=== PATIENT | female | born 1980 | race Caucasian/White ===

== ENCOUNTER 2017-07-19 14:18 | Emergency (ER) | payer OTHER ==
[~2017-07-19] VITALS: Ht 162.6 cm; Wt 72.5 kg
[2017-07-19 14:40] VITALS: TEMP 37.8; Ht 162.6 cm; Wt 72.5 kg
[2017-07-19] MEDS ORDERED: KETOROLAC TROMETHAMINE 30 MG/ML VIAL IV STA (15:06)
[2017-07-19] MEDS ORDERED: SODIUM CHLORIDE 0.9% 1000ML 1,000 ML IV STA (15:06)
[2017-07-19] MEDS ORDERED: ACETAMINOPHEN 325 MG TAB PO STA (15:12)
[2017-07-19 15:28] LABS: BASO % 0.3 %; BASO ABS # 0.02 K/uL (0-0.2); COMPLETE YES; EOS % 1.3 %; HEMATOCRIT 45.5 % (37-47); IG% 0.2 %; LYMPH % 9.6 %; LYMPH ABS # 0.58 K/uL (1.2-3.4); MEAN CELL VOLUME 87.5 fL (80-100); MEAN CORPUSCULAR HEMOGLOBIN 30.4 pg (25-34); MEAN CORPUSCULAR HGB CONC 34.7 g/dl (32-36); MONO % 6.3 %; NEUT % 82.3 %; PLATELET COUNT 180 K/uL (130-400); WHITE BLOOD COUNT 6.07 K/uL (4.8-10.8)
[2017-07-19 15:31] LABS: URINE APPEARANCE CLEAR (CLEAR); URINE BILIRUBIN NEG (NEG); URINE COLOR YELLOW; URINE NITRITE NEG (NEG); URINE SPECIFIC GRAVITY 1.026 (1.000-1.030); UROBILINOGEN NEG (NEG); ZZUR CULT IF INDIC CLEAN CATCH NO
[2017-07-19 15:39] LABS: MANUAL MICROSCOPIC REQUIRED? NO; REVIEW REQ? NO
--- NOTE | 2017-07-19 15:39 | EMERGENCY ROOM VISIT NOTE ---
History First contact with patient: 14:58 Chief Complaint: ILLNESS Stated Complaint: WEAKNESS, HEAD HURTS,BACK HURTS History of Present Illness The patient is a 36 year old female who presents to the Emergency Room with complaints of "weakness, head hurts, back hurts". The patient states that last night she noticed that she had bodyaches followed by her back starting to hurt and her head starting to hurt. She rates the head pain is an 8/10. She states that she has had fevers. The male accompanying her has had similar symptoms over the past few days but is beginning to feel better. He denies any chest pain, shortness of breath or abdominal pain. There are no urinary symptoms. She denies chance of . Review of Systems A complete 10-point Review of Systems was discussed with the patient, with pertinent positives and negatives listed in the History of Present Illness. All remaining Review of Systems questions can be considered negative unless otherwise specified. Past Medical/Surgical History Medical Problems: (1) Thyroid nodule Family History No pertinent. Social History Smoking Status: Never Smoker Alcohol Use: none Marital Status: single Occupation Status: employed Current/Historical Medications Scheduled Levothyroxine Sodium (Levothyroxine Sodium), 1 TAB PO DAILY Physical Exam Vital Signs Date Time Temp Pulse Resp B/P (MAP) Pulse Ox O2 Delivery O2 Flow Rate FiO2 07/19/17 16:47 104 18 116/75 96 07/19/17 14:40 37.8 111 20 115/90 94 Room Air Physical Exam VITAL SIGNS - Vital signs and nursing notes were reviewed. Stable. Tachycardic. Febrile. GENERAL -36-year-old female appearing her stated age who is in no acute distress. Communicates well with provider and answers questions appropriately. SKIN - Without rashes. No petechial or meningeal rash. HEAD - NC/AT. EYES - PERRL with EOMI bilaterally. Sclera anicteric. EARS - No deformities of external structures noted on gross examination bilaterally. Tympanic membranes pearly ferreira without retraction or bulging. No fluid or purulent material visualized behind the TM. Handle of malleus, umbo, cone of light, pars tensa/flaccid all easily visualized. NOSE - Midline and without cyanosis. No epistaxis or purulent drainage noted. MOUTH/OROPHARYNX - Without perioral cyanosis. Buccal mucosa pink and moist and without leukoplakia. Tongue midline with equal elevation of palate bilaterally. No tonsillar hypertrophy, erythema, or exudates noted. Fair dentition noted. NECK - Neck with FROM. No meningismus or nuchal rigidity. LUNGS - Chest wall symmetric without accessory muscle use, intercostals retractions, or central cyanosis. Normal vesicular breath sounds CTA B/L. No wheezes, rales, or rhonchi appreciated. CARDIAC - RRR with S1/S2. No murmur, rubs, or gallops appreciated. ABDOMEN - Abdominal contour normal without pulsations or visible masses. BS normoactive all four quadrants. No tenderness, palpable masses, hepatosplenomegaly, or ascites noted. EXTREMITIES - No clubbing or peripheral cyanosis. No pretibial edema present.+5/ 5 strength noted in UE/LE bilaterally. NEUROLOGIC - Cranial nerves II through XII grossly intact. Sensory intact to light touch throughout. PSYCH - A&O, and cooperates fully with examiner. Pt is very pleasant and interacts well with examiner. Medical Decision & Procedures ER Provider Diagnostic Interpretation: CHEST ONE VIEW PORTABLE CLINICAL HISTORY: Fever and weakness COMPARISON STUDY: 12/30/2008 FINDINGS: The cardiac and mediastinal contours are normal. There is no evidence of focal pulmonary consolidation. There is no evidence of failure. No pleural effusions are visualized.[ IMPRESSION: No active disease in the chest. Electronically signed by: Daniel Alexander M.D. 07/19/2017 3:37 PM Dictated Date/Time: 07/19/2017 3:36 PM Laboratory Results 07/19/17 15:18 Red Blood Count 5.20, Mean Corpuscular Volume 87.5, Mean Corpuscular Hemoglobin 30.4, Mean Corpuscular Hemoglobin Concent 34.7, Mean Platelet Volume 10.0, Neutrophils (%) (Auto) 82.3, Lymphocytes (%) (Auto) 9.6, Monocytes (%) (Auto) 6.3, Eosinophils (%) (Auto) 1.3, Basophils (%) (Auto) 0.3, Neutrophils # (Auto) 5.00, Lymphocytes # (Auto) 0.58, Monocytes # (Auto) 0.38, Eosinophils # (Auto) 0.08, Basophils # (Auto) 0.02 07/19/17 15:18 Test 07/19/17 15:09 07/19/17 15:10 07/19/17 15:18 Influenza Type A Antigen Neg for Influ A (NEG) Influenza Type B Antigen Neg for Influ B (NEG) Urine Color YELLOW Urine Appearance CLEAR (CLEAR) Urine pH 6.0 (4.5-7.5) Urine Specific Exchange 1.026 (1.000-1.030) Urine Protein NEG (NEG) Urine Glucose (UA) NEG (NEG) Urine Ketones NEG (NEG) Urine Occult Blood NEG (NEG) Urine Nitrite NEG (NEG) Urine Bilirubin NEG (NEG) Urine Urobilinogen NEG (NEG) Urine Leukocyte Esterase NEG (NEG) Urine Test NEG (NEG) White Blood Count 6.07 K/uL (4.8-10.8) Red Blood Count 5.20 M/uL (4.2-5.4) Hemoglobin 15.8 g/dL (12.0-16.0) Hematocrit 45.5 % (37-47) Mean Corpuscular Volume 87.5 fL (80-100) Mean Corpuscular Hemoglobin 30.4 pg (25-34) Mean Corpuscular Hemoglobin Concent 34.7 g/dl (32-36) Platelet Count 180 K/uL (130-400) Mean Platelet Volume 10.0 fL (7.4-10.4) Neutrophils (%) (Auto) 82.3 % Lymphocytes (%) (Auto) 9.6 % Monocytes (%) (Auto) 6.3 % Eosinophils (%) (Auto) 1.3 % Basophils (%) (Auto) 0.3 % Neutrophils # (Auto) 5.00 K/uL (1.4-6.5) Lymphocytes # (Auto) 0.58 K/uL (1.2-3.4) Monocytes # (Auto) 0.38 K/uL (0.11-0.59) Eosinophils # (Auto) 0.08 K/uL (0-0.5) Basophils # (Auto) 0.02 K/uL (0-0.2) RDW Standard Deviation 39.6 fL (36.4-46.3) RDW Coefficient of Variation 12.3 % (11.5-14.5) Immature Granulocyte % (Auto) 0.2 % Immature Granulocyte # (Auto) 0.01 K/uL (0.00-0.02) Anion Gap 6.0 mmol/L (3-11) Est Creatinine Clear Calc Drug Dose 83.2 ml/min Estimated GFR () 92.9 Estimated GFR (Non- 80.2 BUN/Creatinine Ratio 12.5 (10-20) Calcium Level 8.4 mg/dl (8.5-10.1) Total Bilirubin 0.2 mg/dl (0.2-1) Aspartate Amino Transf (AST/SGOT) 14 U/L (15-37) Alanine Aminotransferase (ALT/SGPT) 20 U/L (12-78) Alkaline Phosphatase 75 U/L (45-117) Total Protein 7.9 gm/dl (6.4-8.2) Albumin 3.8 gm/dl (3.4-5.0) Globulin 4.1 gm/dl (2.5-4.0) Albumin/Globulin Ratio 0.9 (0.9-2) Medications Administered Medications (Trade) Dose Ordered Sig/Oscar Route Start Time Stop Time Status Last Admin Dose Admin Sodium Chloride 1,000 ml @ 999 mls/hr Q1H1M STAT IV 07/19/17 15:06 07/19/17 16:06 DC 07/19/17 15:06 999 MLS/HR Acetaminophen (Tylenol Tab) 650 mg NOW STAT PO 07/19/17 15:12 07/19/17 15:14 DC 07/19/17 15:26 650 MG Medical Decision Patient was seen and evaluated as above. She presents to us today accompanied by male with weakness, head pain and low back pain. I suspect she is likely experiencing viral illness. IV access was initiated, and the above workup was performed. She was hydrated with 1 L of normal saline. Toradol was initially ordered however canceled she has a reaction to naproxen and I do not want to risk the interaction. She was given Tylenol instead. She was reevaluated and feeling slightly better. There is no concern leukocytosis or anemia noted. No concerning metabolic process. Urine is negative. Urine negative. Negative for flu. I do suspect she likely is experiencing a systemic viral illness but do not suspect sepsis or meningitis. She declined lumbar puncture. I do not believe that one is warranted. She appears stable for outpatient management. She was educated upon management, educated upon worrisome symptoms which to return, had questions about discharge, and was discharged home in good condition. She is to follow-up with her family doctor for recheck. In evaluation treatment this patient following differential diagnoses were entertained: Meningitis, encephalitis, viral URI, pneumonia, among others. Impression Primary Impression: Fever Additional Impression: Systemic viral illness Departure Information Dispostion Home / Self-Care Condition GOOD Referrals Jacques Chowdhury M.D.([facility]) (PCP) Patient Instructions My [facility] Additional Instructions You have been treated in the Emergency Department for fever. For pain control, you can use the following xbor-yas-shqeyay medicines (if >12 yo): - Regular strength (325mg/tab) Tylenol (acetaminophen) 2 tabs every 4-6 hours as needed. Do not exceed 12 tablets in a 24 hour period. Avoid taking more than 3 grams (3000 mg) of Tylenol per day. This includes any other sources of acetaminophen you may take on a regular basis. - Regular strength (200 mg/tab) Advil (ibuprofen) 1-2 tabs every 4-6 hours as needed. Do not exceed a dose of 3200 mg per day. You should schedule a follow-up appointment in 2-3 days with your Primary Care Provider for further evaluation and treatment of your symptoms.. Return to the Emergency Department if your current symptoms worsen despite treatment course outlined above, or if you develop any of the following symptoms : intractable pain despite aforementioned treatment course, loss of control of your bowel or bladder, numbness or tingling in your groin, or development of a fever. Problem Qualifiers
[2017-07-19] MEDS ORDERED: LEVO112T4 PO (15:43)
[2017-07-19 16:20] LABS: BUN/CREATININE RATIO 12.5 (10-20); CALCIUM 8.4 mg/dl (8.5-10.1); CREATININE 0.93 mg/dl (0.60-1.20); POTASSIUM 3.7 mmol/L (3.5-5.1)
[2017-07-19 16:23] LABS: ALB/GLOB RATIO 0.9 (0.9-2)
[2017-07-19 16:47] VITALS: BP 116/75; PULSE 104; O2SAT 96
== END 2017-07-19 16:48 | disposition home or self-care (01) ==
LOC: C.EDB 14:18 → C.EDC 16:48
DX: R50.9 Fever, unspecified (principal); B34.9 Viral infection, unspecified; E04.1 Nontoxic single thyroid nodule; R00.0 Tachycardia, unspecified

== ENCOUNTER 2024-02-06 17:24 | Inpatient (IN) ==
--- OUTSIDE RECORDS SUMMARY | 2024-02-06 17:35 | External Medical Summary | Summary of Care ---
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 agrees with the above plan. Information about current medications was provided to the patient including reasons why medications are being used. Patient understood the risks, benefits, side-effects, and potential complications associated with changes in medications being proposed (both medications being started and medications being discontinued or having dose changed). Patient is making an informed medical decision to follow the recommendations outlined in this note. Directed pt to call with any questions or concerns, worsening symptoms and/or ask for earlier appointment. Greater than 50% of the time was spent counseling or coordinating the care of the patient Risk assessment was performed. This is a patient being treated for chronic mental health conditionsand/or substance use disorder as characterized above; at the time of this visit, there was no indication that this patient was either a risk to self, others, or gravely disabled by symptoms of a mental illness or substance use disorder. At the time of this evaluation, there were enough protective factors in place and it was deemed safe to continue with treatment on an outpatient basis with returnto clinic in the timeframe described above. Airam Freitas participated in developing a crisis plan should he/she experience worsening of symptoms before next follow-up appointment, including being aware of what resources to use according to the urgency and severity of symptoms. Airam Freitas was able to verbalize understanding of the steps necessary to obtain help between appointments should be needed, from requesting a phone call, to requesting an appointment sooner, including reaching clinic after hours, or accessing emergency mental health and medical services, eitherat a local emergency department or by activating mobile crisis teams and EMS. TREATMENT PLAN: Time Spent on Visit: 1 hours Billing code: [id number] BRENT Mccurdy [facility] [phone] 01/01/2024 10:53 AM documented in this encounter Plan of Treatment Upcoming Encounters Date Type Department Care Team (Late st Contact Info) Description 01/19/2024 10:00 AM EDT Office Visit Family Practice [facility] [address] [facility] [place] [address] Tiarra Ricks DO 132 [facility] [place] [address] 02/12/2024 9:00 AM EDT Telemedicine Psychiatry Erica Huang, [place] [address] [place] [phone] Ade Smith CRNP [address] [place] [address] 06/28/2024 4:00 PM EST Imaging Radiology [facility] [address] [facility] [place] [address] Health Maintenance Due Date Last Done Comments HIV Screening 1997 Hepatitis C Screening 2000 Hepatitis B (1 of 3 - 19+ 3-dose series) 2001 HPV/Co-Test 2012 DTaP,Tdap,and Td Vaccines (2 - Td or Tdap) 06/01/2020 06/01/2010 COVID-19 Vaccine ( season) 2023 Cervical Cancer Screening 02/20/2024 Pap Smear 02/20/2024 02/19/2021, 040 01/2017, 10/31/2016, Additional history exists Influenza Vaccine (FLU shot) (Season Ended) 2024 05/18/2019, 05/18/2019, 04/02/2018, Additional history exists Mammogram 06/16/2024 06/16/2023, 02/24, 02/22/2021 Depression Screening 08/19/2024 08/19/2023 TSH 11/02/2024 11/03/2023, 090 08/2022, 02/13/2023, Additional history exists Diabetes Screening 11/02/2026 11/03/2023, 0 03/30/2023, 03/29/2023, Additional history exists Lipid Panel 03/29/2028 03/29/2023, 02/13/2023 GARDASIL-HPV IMMUNIZATION SERIES Aged Out No longer eligible based on patient's age to complete this topic MENINGOCOCCAL (MENACTRA/MENVEO) Aged Out No longer eligible based on patient's age to complete this topic Pneumococcal Vaccine: Pediatrics (0 to 5 Years) and At-Risk Patients (6 to 64 Years) Aged Out No longer eligible based on patient's age to complete this topic documented as of this encounter Medical Devices Not on filedocumented as of this encounter Visit Diagnoses Diagnosis Panic disorder without agoraphobia- Primary GERALDINE (generalized anxiety disorder) Generalized anxiety disorder documented in this encounter Advance Directives * Full Code (Latest Code Status on File) Date Activated Date Inactivated Comments 03/28/2023 6:16 PM 03/31/2023 1:01 AM This order ref lects the patients wishes and were consensually agreed upon. Question Answer Comments Discussion of Advance Directives occurred with: Patient * Full Code Date Activated Date Inactivated Comments 02/18/2016 4:50 PM 02/19/2016 1:25 PM This order r eflects the patients wishes and were consensually agreed upon. Question Answer Comments Discussion of Advance Directives occurred with: Not Discussed Care Teams Salesperson Floor Coverings Relationship Specialty Start Date End Date Tiarra Ricks DO [address] [place] [address] PCP - General Family Medicine 10/08/18 documented as of this encounter
--- OUTSIDE RECORDS SUMMARY | 2024-02-06 17:35 | External Medical Summary | Summary of Care ---
Author Name Unknown Organization [facility] Address [address] [place] [address] Phone [phone] Care Team Providers Care Battery Assembler Plastic Name Role Phone JadenTiarra sands Primary Care Provider [phone] Encounter Details Date Type Department Care Team (Late st Contact Info) Description 01/08/2024 Telephone Psychiatry, [place] [address] [place] [address] Ade mSith CRNP [address] [place] [address] Allergies Active Allergy Reactions Criticality Noted Date Comments Naproxen 02/08/2014 Chest tightness Nitrofurantoin Hives Low 02/07/2014 All over documented as of this encounter (statuses as of 01/08/2024) Medications Medication Sig Dispensed Refills Start Date End Date Status ibuprofen (MOTRIN) 200 MG Tablet Take 1 Tablet by mouth every 4 hours as needed for Pain. Active Levonorgestrel 20 MCG/24HR Intrauterine Intrauterine Device (Mirena) Insert 1 Each into uterus once. Active Hydrocortisone 2.5 % External CreamIndications:Hemo rrhoids, external without complications Administer into the rectum 2 times a day. 20 g 1 05/19/2023 Active Cyclobenzaprine HCl 5 MG Oral Tablet (Flexeril)Indications :Strain of neck muscle, initial encounter Take 1 Tablet by mouth 3 times a day as needed for Muscle spasms. 30 Tablet 1 07/08/2023 Active Ondansetron 4 MG Oral Tablet Disintegrating (Zofran)Indications:N ausea Place 1 Tablet on tongue every 8 hours as needed for Nausea. dissolve on tongue. 30 Tablet 07/30/2023 Active Ventolin HFA 108 (90 Base) MCG/ACT Inhalation Aerosol Solution Inhale 2 Puffs by mouth every 4 hours as needed for Other (COUGH). 18 g 1 08/12/2023 Active Synthroid 112 MCG Oral TabletIndications:Pap illary thyroid carcinoma (HCC) Take 1 Tablet by mouth in the morning. (at least 30 min prior to breakfast or other meds). 90 Tablet 3 11/09/2023 Active Omeprazole 40 MG Oral Capsule Delayed Release (PriLOSEC)Indications :GERD (gastroesophageal reflux disease) Take 1 Capsule by mouth in the morning. 1 hour before the first meal of the day. 90 Capsule 3 12/16/2023 Active Sertraline HCl 100 MG Oral Tablet (Zoloft) Take 1.5 Tablets by mouth in the morning. 45 Tablet 2 01/01/2024 Active busPIRone HCl 10 MG Oral Tablet (Buspar)Indications:G AD (generalized anxiety disorder) Take 2 Tablets by mouth in the morning and 2 Tablets before bedtime. 180 Tablet 3 01/01/2024 Active clonazePAM 0.5 MG Oral Tablet (KlonoPIN) Take 1 Tablet by mouth at bedtime as needed for Anxiety. 30 Tablet 2 01/01/2024 Active traZODone HCl 100 MG Oral Tablet (Desyrel) Take 1 Tablet by mouth at bedtime. 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 Convulsions 11/07/2023 Upper respiratory tract infection 08/12/2023 Anxiety attack 04/29/2023 Family history of breast cancer 02/19/2021 Overview: Mom at age 45; pt to start mammograms GERALDINE (generalized anxiety disorder) 05/11/2018 Hypocalcemia 04/09/2016 Low serum parathyroid hormone (PTH) 04/09/2016 Papillary thyroid carcinoma 02/18/2016 Overview: Dx at time of R thyroid lobectomy on 02/06/16 at [facility]; 2.0 cm max diameter with extension into surrounding thyroid tissue Post-surgical hypothyroidism 02/18/2016 Overview: Following completion thyroidectomy for Papillary Thyroid Carcinoma documented as of this encounter (statuses as of 01/08/2024) Resolved Problems Problem Noted Date Diagnosed Date Resolved Date Malaise and fatigue 04/07/2011 06/30/20 17 Vertigo 04/07/2011 06/30/2017 NO KNOWN PROBLEMS 11/08/2008 06/30/2017 documented as of this encounter (statuses as of 01/08/2024) Immunizations Name Administration Dates Next Due PPD [...] money to get more. Never true 01/01/2024 Sex and Gender Information Value Date [...] (15 years old or older) No 03/28/20 Cognitive Status Response Date of Assessm ent Because of a physical, menta l, or emotional condition, do you have serious difficulty concentrating, remembering, or making decisions? (5 years old or older) No 03/28/2023 documented as of this encounter Plan of Treatment Upcoming Encounters Date Type Department Care Team (Late st Contact Info) Description 01/13/2024 1:40 PM EDT Office Visit Family Practice [facility] 132 [facility] [place] [address] Tiarra Ricks, 132 [facility] [place] [address] 02/12/2024 9:00 AM EDT Telemedicine Psychiatry Melissa Villan[place] [address] [place] [phone] Ade Smith CRNP [address] [place] [address] 06/28/2024 4:00 PM EST Imaging Radiology [address] [facility] [place] [address] Health Maintenance Due Date Last Done Comments HIV Screening 1997 Hepatitis C Screening 2000 Hepatitis B (1 of 3 - 19+ 3-dose series) 2001 HPV/Co-Test 2012 DTaP,Tdap,and Td Vaccines (2 - Td or Tdap) 06/01/2020 06/01/2010 COVID-19 Vaccine ( season) 2023 Cervical Cancer Screening 02/20/2024 Pap Smear 02/20/2024 02/19/2021, 04/0 01/2017, 10/31/2016, Additional history exists Influenza Vaccine (FLU shot) (Season Ended) 2024 05/18/2019, 05/18/2019, 04/02/2018, Additional history exists Mammogram 06/16/2024 06/16/2023, 0809/2020, 02/22/2021 Depression Screening 08/19/2024 08/19/2023 TSH 11/02/2024 11/03/2023, 0908/2022, 02/13/2023, Additional history exists Diabetes Screening 11/02/2026 [...] as of this encounter Visit Diagnoses Diagnosis GERALDINE (generalized anxiety disorder)- Primary Generalized anxiety disorder documented in this encounter [...] Directives occurred with: Not Discussed Care Teams Battery Assembler Plastic Relationship Specialty Start Date End Date Tiarra Ricks DO [address] [place] [address] PCP - General Family Medicine 10/08/18 documented as of this encounter
--- OUTSIDE RECORDS SUMMARY | 2024-02-06 17:35 | External Medical Summary | Summary of Care ---
Author Name Unknown Organization [facility] Address [address] [facility] [place] [address] Phone [phone] Care Team Providers Care Blacksmith Assistant Name Role Phone Tiarra Ricks DO Primary Care Provider [phone] Reason for Visit * Reason Onset Date Comments Advice 12/26/2023 Encounter Details Date Type Department Care Team (Late st Contact Info) Description 12/26/2023 Telephone Family Practice [facility] [address] [place] [address] Tiarra Ricks DO [address] [place] [address] Advice Allergies Active Allergy Reactions Criticality Noted Date Comments Naproxen 02/08/2014 Chest tightness Nitrofurantoin Hives Low 02/07/2014 All over documented as of this encounter (statuses as of 12/28/2023) Medications Medication Sig Dispensed Refills Start Date End Date Status ibuprofen (MOTRIN) 200 MG Tablet Take 1 Tablet by mouth every 4 hours as needed for Pain. Active Levonorgestrel 20 MCG/24HR Intrauterine Intrauterine Device (Mirena) Insert 1 Each into uterus once. Active Sertraline HCl 100 MG Oral Tablet (Zoloft)Indications:G AD (generalized anxiety disorder) TAKE 1 TABLET BY MOUTH EVERY DAY 90 Tablet 3 03/12/2023 Active Hydrocortisone 2.5 % External CreamIndications:Hemo rrhoids, [...] Other (COUGH). 18 g 1 08/12/2023 Active busPIRone HCl 10 MG Oral Tablet (Buspar)Indications:G AD (generalized anxiety disorder) Take 2 Tablets by mouth in the morning and 2 Tablets before bedtime. 180 Tablet 3 11/03/2023 Active Synthroid 112 MCG Oral TabletIndications:Pap illary [...] the day. 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 Convulsions 11/07/2023 Upper respiratory tract infection 08/12/2023 Anxiety attack 04/29/2023 Family history of breast cancer 02/19/2021 Overview: Mom at age 47; pt to start mammograms GERALDINE (generalized anxiety disorder) 05/11/2018 Hypocalcemia 04/09/2016 Low serum parathyroid hormone (PTH) 04/09/2016 Papillary thyroid carcinoma 02/18/2016 Overview: Dx at time of R thyroid lobectomy on 02/06/16 at [facility]; 2.0 cm max diameter with extension into surrounding thyroid tissue Post-surgical hypothyroidism 02/18/2016 Overview: Following completion thyroidectomy for Papillary Thyroid Carcinoma documented as of this encounter (statuses as of 12/28/2023) Resolved Problems Problem Noted Date Diagnosed Date Resolved Date Malaise and fatigue 04/07/2011 06/30/20 17 Vertigo 04/07/2011 06/30/2017 NO KNOWN PROBLEMS 11/08/2008 06/30/2017 documented as of this encounter (statuses as of 12/28/2023) Immunizations Name Administration Dates Next Due PPD [...] the money to buy more. Never true 02/24/20 23 Within the past 12 months, t he food you bought just didn't last and you didn't have money to get more. Never true 02/23/2023 Sex and Gender Information Value Date Recorded [...] No 03/28/2023 documented as of this encounter Miscellaneous Notes * Telephone Encounter - Lashaun Ansari LPN - 12/28/2023 2:18 PM EDT Nothing sooner for Dr. Dawson Looks like appt was scheduled, and pt will need to keep that apptif she only wants to see Dr. Ricks. * Telephone Encounter - Charisma St OSA - 12/28/2023 8:43 AM EDT Patient calling in to schedule hospital discharge appointment- scheduled for 01/13/24 due to patientonly wanting to see PCP. No sooner appointments available. Hospital discharge- [facility] 12/26/23- Panic attacks/anxiety- requested PCP only (next available 01/13/24) * Telephone Encounter - Haylee Monroe OSA - 12/26/2023 12:56 PM EDT Pt stating they are having really bad anxiety attacks from the last 2 days, wondering if there is anything she can do as she is also having really bad diarrhea. Requesting someone give her a call. documented in this encounter Plan of Treatment Upcoming Encounters Date Type Department Care Team (Late st Contact Info) Description 01/01/2024 11:00 AM EDT Telemedicine Psychiatry Melissa Villanueva [address] [place] [phone] Ade Smith CRNP [address] [place] [phone] 01/13/2024 1:40 PM EDT Office Visit Family Practice [facility] [address] [facility] [place] [address] Tiarra Ricks, [address] [facility] [place] [address] 06/28/2024 4:00 PM EST Imaging Radiology [address] 132 [facility] [place] [address] Health Maintenance Due Date Last Done Comments HIV Screening 1997 Hepatitis C Screening 2000 Hepatitis B (1 of 3 - 19+ 3-dose series) 2001 HPV/Co-Test 2012 DTaP,Tdap,and Td Vaccines (2 - Td or Tdap) 06/01/2020 06/01/2010 COVID-19 Vaccine ( - season) 2023 Cervical Cancer Screening 02/20/2024 Pap Smear 02/20/2024 02/19/2021, 01/2017, 10/31/2016, Additional history exists Influenza Vaccine (FLU shot) (Season Ended) 2024 05/18/2019, 05/18/2019, 04/02/2018, Additional history exists Mammogram 06/16/2024 06/16/2023, 05/28, 03/08/2021, Additional history exists Depression Screening 08/19/2024 08/19/2023 TSH 11/02/2024 11/03/2023, 08/2022, 02/13/2023, Additional history exists Diabetes Screening [...] Not on filedocumented as of this encounter Advance Directives * Full Code [...] Directives occurred with: Not Discussed Care Teams Blacksmith Assistant Relationship Specialty Start Date End Date Tiarra Ricks DO [address] [place] [address] PCP - General Family Medicine 10/08/18 documented as of this encounter
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
[2024-02-06 17:50] LABS: Appearance Urine Cloudy (Clear); Bacteria Urine Automated None Seen (None Seen); Bilirubin Urine Negative (Negative); Blood Urine Negative (Negative); Color Urine Dark Yellow; Glucose Urine UA Negative (Negative); Ketones Urine Trace (Negative); Leukocyte Esterase Urine Trace (Negative); Nitrite Urine Negative (Negative); Protein Urine Trace (Negative); RBC Urine Automated 0-2 /hpf (0-2); Specific Gravity Urine 1.031 (1.000-1.030); Urobilinogen Urine Negative (Negative); WBC Urine Automated 0-5 /hpf (0-5); pH Urine 5.5 (4.5-7.5)
[2024-02-06 18:07] LABS: Amphetamines+Metham, Urine Neg (Neg); Barbiturates, Urine Neg (Neg); Benzodiazepine, Urine Pos (Neg); Cocaine, Urine Neg (Neg); Fentanyl, Urine Neg (Neg); MDMA (Ecstacy), Urine Neg (Neg); Marijuana, Urine Neg (Neg); Methadone, Urine Neg (Neg); Opiate, Urine Neg (Neg); Phencyclidine, Urine Neg (Neg)
[2024-02-06 18:09] LABS: Basophils # (auto) 0.03 K/uL (0.00-0.20); Basophils % (auto) 0.3 %; Eosinophils # (auto) 0.14 K/uL (0.00-0.50); Eosinophils % (auto) 1.2 %; Hematocrit (blood only) 47.2 % (37.0-47.0); Hemoglobin 15.8 g/dl (12.0-16.0); Immature Granulocytes # (auto) 0.02 K/uL (0.01-0.20); Immature Granulocytes % (auto) 0.2 %; Lymphocytes # (auto) 1.45 K/uL (1.20-3.40); Lymphocytes % (auto) 12.8 %; Mean Corpuscular Hemoglobin 28.2 pg (25.0-34.0); Mean Corpuscular Hgb Conc 33.5 g/dL (32.0-36.0); Mean Corpuscular Volume 84.1 fL (80.0-100.0); Monocytes # (auto) 0.95 K/uL (0.11-0.59); Monocytes % (auto) 8.4 %; Neutrophils # (auto) 8.78 K/uL (1.40-6.50); Neutrophils % (auto) 77.1 %; Platelet Count 229 K/uL (130-400); RDW Coefficient of Variation 12.8 % (11.5-14.5); RDW Standard Deviation 38.9 fL (36.4-46.3); Red Blood Count 5.61 M/uL (4.20-5.40); White Blood Count 11.37 K/ul (4.8-10.8)
[2024-02-06 18:26] LABS: Pregnancy Test, Serum Negative (Negative)
[2024-02-06 18:27] LABS: Albumin Globulin Ratio 1.4 (0.9-2); Albumin Level 4.4 gm/dl (3.4-5.0); BUN Creatinine Ratio 14.1 (10-20); Bilirubin,Total 0.6 mg/dl (0.2-1.0); Calcium 9.1 mg/dl (8.6-10.3); Creatinine Clr Calc Pharmacy 84.5 ml/min; Est GFR (African American) 89.6 ml/min; Est GFR (Non-African American) 77.3 ml/min; Globulin 3.2 gm/dl (2.5-4.0); Potassium 3.5 mmol/L (3.5-5.1); Total Protein 7.6 gm/dl (6.0-8.3)
[2024-02-06 18:32] LABS: Acetaminophen < 3 ug/ml (10-30); Salicylate < 3.0 mg/dl (3.0-30)
[2024-02-06 18:44] LABS: Thyroid Stimulating Hormone 1.822 uIu/ml (0.300-4.500)
[2024-02-06] MEDS ORDERED: ACETAMINOPHEN 325 MG TAB PO PRN (22:34)
[2024-02-06] MEDS ORDERED: hydrOXYzine HCl 25 MG TAB PO PRN ×2 (22:34)
[2024-02-06] MEDS ORDERED: ALUMINUM/MAGNESIUM SUSP 30 ML UDC PO PRN (22:34)
[2024-02-06] MEDS ORDERED: SODIUM CHLORIDE 0.65% NA SOLN 45 ML (OCEAN) PRN (22:34)
[2024-02-06] MEDS ORDERED: MAGNESIUM HYDROXIDE SUSP 30 ML UDC PO PRN (22:34)
[2024-02-06] MEDS ORDERED: clonazePAM 0.5 MG TAB PO PRN (22:54)
[2024-02-06] MEDS: traZODone HCL 100 MG TAB PO SCH (23:03)
[2024-02-06] MEDS: busPIRone 5 MG TAB PO SCH (23:05)
[2024-02-07] MEDS: LEVOTHYROXINE SODIUM 112 MCG TABLET PO SCH (08:52)
[2024-02-07] MEDS: PANTOprazole 40 MG TAB PO SCH (08:52)
[2024-02-07] MEDS: SERTRALINE HCL 50 MG TABLET PO SCH (08:52)
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
[2024-02-07] MEDS: ARIPiprazole 5 MG TAB PO SCH (21:37)
[2024-02-08] MEDS: LORazepam 0.5 MG TAB PO PRN (13:36)
--- NOTE | 2024-02-08 16:35 | Psychiatric Progress Note ---
Date of Service February 08, 2024 Impression / Recommendations Impression MARU FOWLER is a 43-year-old F who currently lives with daughters, has a history of depression, anxiety, panic attacks, hypothyroidism, and was admitted on 02/06/24 22:09 on a 201 voluntary commitment for suicidal ideation in the context of escalating social stressors. Patient's presentation concerning for major depressive disorder and generalized anxiety disorder with panic attacks. Patient presents excess worry occurring more days than not, difficulty controlling the worry, and associated with physical symptoms including sleep disturbance, difficulty concentrating, being easily fatigued, and being restles s. Patient at times has associated panic attacks. She presents a history of a major depressive episodes. A: Patient continues to be distressed about recent stressors and impacting sleep. Tolerating Abilify well. Encouraged to use PRNs for anxiety. Overall, I spent a total of 40 minutes with this case including review of chart records, nursing report, direct evaluation of the patient at bedside, counseling the patient, multidisciplinary team meeting, and documentation in the electronic health record. (1) Generalized anxiety disorder with panic attacks: (2) MDD (major depressive disorder), recurrent, in partial remission: (3) Other social stressor: (4) H/O thyroidectomy: Plan 02/08/2024: Continue medication and treatment plan. 02/07/2024: Continue home medications. Start aripiprazole 5 mg at bedtime. Start lorazepam 0.5 mg every 6 hours as needed for anxiety. Inventory Assets Strengths: family support, connected to care Needs: outpatient counseling, medication adjustment Suicide Risk Level Suicide Risk Level: Moderate (q15 min suicide checks) Risk Factors Assessment Male: No : Yes Do You Have Access To A Gun?: No Health Problems: Yes Mental Health Diagnoses: Yes Substance Use Disorders: No Previous Attempt: No Family History of Suicide: No Previous Psychiatric Hospitalization: No Hopelessness: No Protective Factors Assessment Holiness Beliefs: No : No Responsible for Young Children: Yes Employed: Yes ([employer]) Stable Relationships: Yes Supportive Family: Yes Good Rapport with Provider: Yes Absence of Any Risk Factors Above: No Interval History Identifying Information MARU FOWLER is a 43-year-old F who currently lives with daughters, has a history of depression, anxiety, panic attacks, hypothyroidism, and was admitted on 02/06/24 22:09 on a 201 voluntary commitment for suicidal ideation in the context of escalating social stressors. Chief Complaint "tired". Review of Systems Sleep Information Total Hours of Sleep: 7.5 Meal Information Percent Meal Consumed - Breakfast: 40 Percent Meal Consumed - Lunch: 75 Percent Meal Consumed - Dinner: 50 Subjective Subjective Patient was seen & assessed and interval progress reviewed with treatment team nursing and social work Patient reports feeling tired. Complains of sleep onset and maintenance disruption due to anxious ruminations. Feels that she is "in a fog". Has been tolerating Abilify with no side effects or complaints. She denies suicidal ideation. She appears bright when talking about her pets. Discusses the stressors she is currently going through. Encouraged to use anxiety PRNs. Physical Exam Mental Examination Appearance: Well Groomed Eye Contact: Maintains Eye Contact Motor Behavior: Unremarkable Speech: Normal Mood: Anxious and Sad Affect: Congruent and Constricted Thought Process: Intact and Linear Thought Content: Intact Hallucinations: None Insight: Fair Judgement: Fair Vital Signs (Past 24 Hours) Last Vital Signs Temp 36.5 C 02/08/24 06:28 Pulse 76 02/08/24 06:28 Resp 16 02/08/24 06:28 BP 104/68 02/08/24 06:28 Pulse Ox 96 02/06/24 23:22 O2 Del Method Room Air 02/06/24 23:22 Results & Data ([facility]) Current Inpatient Medications Current Inpatient Medications: Current Inpatient Medications Acetaminophen (Acetaminophen 325 Mg Tab) 650 mg PO Q4H PRN PRN Reason: Headache or Minor Fever Stop: 03/07/24 22:33 Al Hydrox/Mg Hydrox/Simethicone (Aluminum/Magnesium Susp 30 Ml Udc) 30 ml PO Q4H PRN PRN Reason: GI Upset Stop: 03/07/24 22:33 Aripiprazole (Aripiprazole 5 Mg Tab) 5 mg PO HS MARCI Stop: 03/08/24 21:59 Last Admin: 02/07/24 21:37 Dose: 5 mg Buspirone HCl (Buspirone 5 Mg Tab) 20 mg PO BID MARCI Stop: 03/07/24 22:59 Last Admin: 02/08/24 08:56 Dose: 20 mg Clonazepam (Clonazepam 0.5 Mg Tab) 0.5 mg PO HS PRN PRN Reason: Anxiety Stop: 03/07/24 22:53 Hydroxyzine HCl (Hydroxyzine Hcl 25 Mg Tab) 50 mg PO HSZ PRN PRN Reason: Insomnia Stop: 03/07/24 22:33 Hydroxyzine HCl (Hydroxyzine Hcl 25 Mg Tab) 25 mg PO Q4H PRN PRN Reason: Anxiety Stop: 03/07/24 22:33 Levothyroxine Sodium (Levothyroxine Sodium 112 Mcg Tablet) 112 mcg PO DAILYBB MARCI Stop: 03/08/24 07:59 Last Admin: 02/08/24 08:56 Dose: 112 mcg Lorazepam (Lorazepam 0.5 Mg Tab) 0.5 mg PO Q6H PRN PRN Reason: Anxiety Stop: 03/08/24 15:33 Last Admin: 02/08/24 13:36 Dose: 0.5 mg Magnesium Hydroxide (Magnesium Hydroxide Susp 30 Ml Udc) 30 ml PO DAILY PRN PRN Reason: Constipation Stop: 03/07/24 22:33 Pantoprazole Sodium (Pantoprazole 40 Mg Tab) 40 mg PO QAM MARCI Stop: 03/08/24 08:59 Last Admin: 02/08/24 08:56 Dose: 40 mg Sertraline HCl (Sertraline Hcl 50 Mg Tablet) 150 mg PO QAM MARCI Stop: 03/08/24 08:59 Last Admin: 02/08/24 08:56 Dose: 150 mg Sodium Chloride (Sodium Chloride 0.65% Na Soln 45 Ml (Saline)) 1 - 2 sprays NA PRN PRN PRN Reason: Nasal Dryness/Congestion Stop: 03/07/24 22:33 Trazodone HCl (Trazodone Hcl 100 Mg Tab) 200 mg PO HS MARCI Stop: 03/07/24 22:54 Last Admin: 02/07/24 21:39 Dose: 200 mg Mental Health & Subst Abuse Tx Therapist Name of Therapist: None - has been calling around for appointment Payroll And Benefits Assistant Name of Payroll And Benefits Assistant: None
--- NOTE | 2024-02-09 14:45 | Psychiatric Progress Note ---
Date of Service February 09, 2024 Impression / Recommendations Impression MARU FOWLER is a 43-year-old F who currently lives with daughters, has a history of depression, anxiety, panic attacks, hypothyroidism, and was admitted on 02/06/24 22:09 on a 201 voluntary commitment for suicidal ideation in the context of escalating social stressors. Patient's presentation concerning for major depressive disorder and generalized anxiety disorder with panic attacks. Patient presents excess worry occurring more days than not, difficulty controlling the worry, and associated with physical symptoms including sleep disturbance, difficulty concentrating, being easily fatigued, and being restles s. Patient at times has associated panic attacks. She presents a history of a major depressive episodes. A: Patient presents improved anxious ruminations. Continues to have some difficulties with sleep and was encouraged to use as needed Klonopin. Tolerating abilify well. Given the limited benefit from trazodone will decrease back to 100 mg dose. Overall, I spent a total of 30 minutes with this case including review of chart records, nursing report, direct evaluation of the patient at bedside, counseling the patient, multidisciplinary team meeting, and documentation in the electronic health record. (1) Generalized anxiety disorder with panic attacks: (2) MDD (major depressive disorder), recurrent, in partial remission: (3) Other social stressor: (4) H/O thyroidectomy: Plan 02/09/2024: Decrease trazodone to 100 mg at bedtime. 02/08/2024: Continue medication and treatment plan. 02/07/2024: Continue home medications. Start aripiprazole 5 mg at bedtime. Start lorazepam 0.5 mg every 6 hours as needed for anxiety. Inventory Assets Strengths: family support, connected to care Needs: outpatient counseling, medication adjustment Suicide Risk Level Suicide Risk Level: Moderate (q15 min suicide checks) Risk Factors Assessment Male: No : Yes Do You Have Access To A Gun?: No Health Problems: Yes Mental Health Diagnoses: Yes Substance Use Disorders: No Previous Attempt: No Family History of Suicide: No Previous Psychiatric Hospitalization: No Hopelessness: No Protective Factors Assessment Samaritan Beliefs: No : No Responsible for Young Children: Yes Employed: Yes ([employer]) Stable Relationships: Yes Supportive Family: Yes Good Rapport with Provider: Yes Absence of Any Risk Factors Above: No Interval History Identifying Information MARU FOWLER is a 43-year-old F who currently lives with daughters, has a history of depression, anxiety, panic attacks, hypothyroidism, and was admitted on 02/06/24 22:09 on a 201 voluntary commitment for suicidal ideation in the context of escalating social stressors. Chief Complaint "better". Review of Systems Sleep Information Total Hours of Sleep: 7.5 Meal Information Percent Meal Consumed - Breakfast: 50 Percent Meal Consumed - Lunch: 75 Percent Meal Consumed - Dinner: 50 Subjective Subjective Patient was seen & assessed and interval progress reviewed with treatment team nursing and social work The patient reports feeling "good". She reports feeling better. Feels more rested but continues to have difficulty staying asleep. Feels the increase in trazodone from outpatient practitioner did not make an impact. Still had difficulty sleeping and trazodone at 100 mg. Feels she has improved control over her anxious ruminations. Tolerating Abilify well. Reports niece is doing better and is currently in the [place]. Talks about her life and says that her daughter is in October tolerating Abilify well. Reports niece is doing better and is currently in the [facility]. Daughter is to be in October. She talks about her daughter's accomplishments and how she is proud. She denies suicidal ideation. Physical Exam Mental Examination Appearance: Well Groomed Eye Contact: Maintains Eye Contact Motor Behavior: Unremarkable Speech: Normal Mood: Anxious and Sad Affect: Congruent and Constricted Thought Process: Intact and Linear Thought Content: Intact Hallucinations: None Insight: Fair Judgement: Fair Vital Signs (Past 24 Hours) Last Vital Signs Temp 36.4 C L 02/09/24 06:00 Pulse 77 02/09/24 06:19 Resp 16 02/09/24 06:00 BP 104/71 02/09/24 06:19 Pulse Ox 96 02/09/24 06:00 O2 Del Method Room Air 02/09/24 06:00 Results & Data ([facility]) Current Inpatient Medications Current Inpatient Medications: Current Inpatient Medications Acetaminophen (Acetaminophen 325 Mg Tab) 650 mg PO Q4H PRN PRN Reason: Headache or Minor Fever Stop: 03/07/24 22:33 Al Hydrox/Mg Hydrox/Simethicone (Aluminum/Magnesium Susp 30 Ml Udc) 30 ml PO Q4H PRN PRN Reason: GI Upset Stop: 03/07/24 22:33 Aripiprazole (Aripiprazole 5 Mg Tab) 5 mg PO HS MARCI Stop: 03/08/24 21:59 Last Admin: 02/08/24 20:52 Dose: 5 mg Buspirone HCl (Buspirone 5 Mg Tab) 20 mg PO BID MARCI Stop: 03/07/24 22:59 Last Admin: 02/09/24 08:55 Dose: 20 mg Clonazepam (Clonazepam 0.5 Mg Tab) 0.5 mg PO HS PRN PRN Reason: Anxiety Stop: 03/07/24 22:53 Hydroxyzine HCl (Hydroxyzine Hcl 25 Mg Tab) 50 mg PO HSZ PRN PRN Reason: Insomnia Stop: 03/07/24 22:33 Hydroxyzine HCl (Hydroxyzine Hcl 25 Mg Tab) 25 mg PO Q4H PRN PRN Reason: Anxiety Stop: 03/07/24 22:33 Levothyroxine Sodium (Levothyroxine Sodium 112 Mcg Tablet) 112 mcg PO DAILYBB MARCI Stop: 03/08/24 07:59 Last Admin: 02/09/24 08:55 Dose: 112 mcg Lorazepam (Lorazepam 0.5 Mg Tab) 0.5 mg PO Q6H PRN PRN Reason: Anxiety Stop: 03/08/24 15:33 Last Admin: 02/08/24 13:36 Dose: 0.5 mg Magnesium Hydroxide (Magnesium Hydroxide Susp 30 Ml Udc) 30 ml PO DAILY PRN PRN Reason: Constipation Stop: 03/07/24 22:33 Pantoprazole Sodium (Pantoprazole 40 Mg Tab) 40 mg PO QAM MARCI Stop: 03/08/24 08:59 Last Admin: 02/09/24 08:55 Dose: 40 mg Sertraline HCl (Sertraline Hcl 50 Mg Tablet) 150 mg PO QAM MARCI Stop: 03/08/24 08:59 Last Admin: 02/09/24 08:55 Dose: 150 mg Sodium Chloride (Sodium Chloride 0.65% Na Soln 45 Ml (Blanco)) 1 - 2 sprays NA PRN PRN PRN Reason: Nasal Dryness/Congestion Stop: 03/07/24 22:33 Trazodone HCl (Trazodone Hcl 100 Mg Tab) 200 mg PO HS MARCI Stop: 03/07/24 22:54 Last Admin: 02/08/24 20:53 Dose: 200 mg Mental Health & Subst Abuse Tx Psychiatrist Name of Psychiatrist: Robert Castano - Ade Smith Psychiatrist's Date Of Appointment With Psychiatric Provider: 02/12/2024 Time of Appointment with Psychiatrist: 9:00 am Psychiatric Appointment Comment: This is a telehealth appointment - Use the [employer]yla on your phone Therapist Name of Therapist: Robert Psychiatry- Therapy Therapist's Date of Therapist Appointment: 03/21/24 Time of Therapist Appointment: 1130 Therapy Appointment Comment[facility] Specialty Sales Consultant Name of Specialty Sales Consultant: None
[2024-02-09] MEDS: traZODone HCL 100 MG TAB PO SCH (21:27)
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
[2024-02-10 15:07] LABS: 7-Aminoclonaz, Confirm 41 ng/mL (<25); Hydro-Alp Ur, GC/MS NEGATIVE ng/mL (<25); Hydroxyethylflurazepam, Conf NEGATIVE ng/mL (<50); Hydroxymidazolam Ur, GC/MS NEGATIVE ng/mL (<50); Hydroxytriazolam NEGATIVE ng/mL (<50); Lorazepam, Ur GC/MS NEGATIVE ng/mL (<50); Nordiazepam, Confirm NEGATIVE ng/mL (<50); Oxazepam Ur, GC/MS NEGATIVE ng/mL (<50); Temazepam, Confirm NEGATIVE ng/mL (<50)
== END 2024-02-10 16:30 | disposition home or self-care (01) | DRG 885 ==
LOC: ED 17:24 → 3S 22:09